=== PATIENT | female | born 1970 | race Caucasian/White ===

== ENCOUNTER 2016-03-15 12:45 | Observation (INO) | payer BC ==
[~2016-03-15] VITALS: Ht 165.1 cm; Wt 78.9 kg
[2016-03-15] MEDS ORDERED: NITROGLYCERIN 2% OINT 1 INCH PKT TOPICAL ONE (14:13)
[2016-03-15] MEDS ORDERED: ENOXAPARIN 80 MG/0.8 ML SYR SUBQ ONE (14:13)
[2016-03-15] MEDS ORDERED: TEMAZEPAM 7.5 MG CAP PO PRN (15:20)
[2016-03-15] MEDS ORDERED: ALU/MAG/SIM 30 ML UDC PO PRN (15:20)
[2016-03-15] MEDS ORDERED: ACETAMINOPHEN 325 MG TAB PO PRN (15:20)
[2016-03-15] MEDS ORDERED: ONDANSETRON 4 MG VIAL IV PRN (15:20)
[2016-03-15] MEDS ORDERED: SALINE FLUSH 10 ML FLUSH PRN (15:20)
[2016-03-15] MEDS ORDERED: CLOPIDOGREL 75 MG TAB PO ONE (16:55)
[2016-03-15 17:01] VITALS: Ht 165.1 cm; Wt 78.9 kg
[2016-03-15] MEDS: amLODIPine 10 MG TAB PO SCH (17:01)
[2016-03-15 17:02] VITALS: BP_SYST 120; RESP 16; TEMP 98.5
[2016-03-15] MEDS: METOPROLOL XL 50 MG TAB PO SCH (17:49)
[2016-03-15] MEDS: TRAMADOL 50 MG TAB PO PRN (18:52)
[2016-03-15 19:46] VITALS: BP_SYST 112; RESP 18; TEMP 97.2
[2016-03-15] MEDS ORDERED: MISSING DOSE XX ONE ×2 (20:40→22:15)
[2016-03-15] MEDS ORDERED: ROSUVASTATIN 5 MG TAB PO SCH (21:00)
[2016-03-15] MEDS: SALINE FLUSH 10 ML FLUSH SCH (21:14)
[2016-03-15] MEDS: MORPHINE 2 MG/ML SYR IV PRN ×2 (21:15→23:47)
[2016-03-15 23:36] VITALS: BP_SYST 114; RESP 18; TEMP 97.3
[2016-03-15] MEDS: NITROGLYCERIN SL 0.4 MG TAB SL PRN (23:58)
[2016-03-16] MEDS: NITROGLYCERIN SL 0.4 MG TAB SL PRN ×2 (01:09→01:15)
[2016-03-16] MEDS: TRAMADOL 50 MG TAB PO PRN (01:23)
[2016-03-16] MEDS ORDERED: NITROGLYCERIN 50 MG/250 ML 250 ML IV SCH (01:35)
[2016-03-16] MEDS: MORPHINE 2 MG/ML SYR IV PRN ×2 (03:16→04:47)
[2016-03-16 03:26] VITALS: BP_SYST 112; RESP 16; TEMP 98
[2016-03-16] MEDS ORDERED: SODIUM CHLORIDE 0.9% FLUSH BAG 500 ML IV SCH (06:00)
[2016-03-16 07:49] VITALS: BP_SYST 93; RESP 16; TEMP 97.8
[2016-03-16] MEDS: SALINE FLUSH 10 ML FLUSH SCH (08:00)
[2016-03-16] MEDS: CLOPIDOGREL 75 MG TAB PO SCH ×2 (08:09→14:24)
[2016-03-16] MEDS: METOPROLOL XL 50 MG TAB PO SCH (08:09)
[2016-03-16] MEDS: amLODIPine 10 MG TAB PO SCH (08:09)
[2016-03-16 13:20] VITALS: BP_SYST 106; RESP 16; TEMP 97.9
[2016-03-16 16:29] VITALS: BP_SYST 110; RESP 16; TEMP 97.6
[2016-03-16 17:44] VITALS: BP_SYST 110; RESP 16; TEMP 97.6
== END 2016-03-16 17:31 | disposition home or self-care (01) ==
LOC: ENRESERVTM → ENRESERVDT → ER 12:45 → ENPENDDIS 15:18 → EMR 15:18 → 4THE 17:00
PROVIDERS: ADMIT Internal Medicine Cardiovascular Disease; ATTEND Internal Medicine Cardiovascular Disease
DX: R07.9 Chest pain, unspecified (principal); I25.10 Atherosclerotic heart disease of native coronary artery without angina pectoris; I10 Essential (primary) hypertension; Z95.5 Presence of coronary angioplasty implant and graft; E78.5 Hyperlipidemia, unspecified; Z88.6 Allergy status to analgesic agent
CPT/HCPCS: 36415; 71010; 78452; 80053; 80061; 82550; 82553; 83735; 83880; 84439; 84443; 84484; 85025; 85610; 85730; 93005; 93017; 93306; 96372